=== PATIENT | male | born 1960 | race Caucasian/White ===

== ENCOUNTER 2023-02-05 16:13 | Outpatient (AMB) | payer OTHER, SELFPAY ==
[2023-02-05 16:23] VITALS: BP 138/80; PULSE 56; BMI 31.1
--- NOTE | 2023-02-05 16:23 | HO.NEPHOV_ITS ---
HPI HPI Comments History of Present Illness Details I had the privilege of seeing Eliseo in follow-up of his hypertension. He recently has seen another physician who wanted to make changes in his medication regimen. He was suggested at that time to starting chlorthalidone. Patient did not understand why there is a change when his blood pressure control has been stable on his current home medication regimen for long time. 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 He had multiple other physician visits with stable blood pressure. He monitors his blood pressure at home. His renal functions have been normal. He does not have any orthostatic symptoms. His serum potassium has been normal along with serum creatinine. He does not have any edema, retinopathy, chest pain, shortness of breath, proximal nocturnal dyspnea or orthopnea. He does not take nonsteroidal anti-inflammatory medications on a regular basis. He is conscious about low-sodium diet. He feels well. [facility] Medical History (Updated 02/06/23 @ 09:15 by Maximiliano Moser MD) Hypertension Surgical History (Updated 02/05/23 @ 16:36 by Nithya Tidwell MA) History of cholecystectomy H/O congenital atrial septal defect (ASD) repair Family History (Updated 02/05/23 @ 16:35 by Nithya Tidwell MA) Mother Hypertension Father Hypertension Social History (Updated 02/05/23 @ 16:34 by Nithya Tidwell MA) Alcohol intake: never Patient Tobacco Use Status: Never used Tobacco Vital Signs 02/05/23 16:23 02/05/23 17:10 Height 6 ft Weight 229 lb BMI 31.1 BP 138/80 130/80 Blood Pressure Location Rt brachial Position Sitting Pulse 56 Pulse Source Pulse Oximeter Physical Exam Vital Signs: Last Vital Signs Pulse 56 02/05/23 16:23 BP 130/80 02/05/23 17:10 BMI result Body Mass Index 31.1 Const General: comfortable and no acute distress Orientation/consciousness: patient oriented x3 HEENT Head: Yes normocephalic Mouth: Normal oral and palatal mucosa present Eyes EOM: EOMs intact bilaterally Neck Neck: Yes supple Resp Auscultation: clear to auscultation bilaterally Cardio Jugular venous distension: no JVD Rate: regular rate GI Palpation (GI): Soft to palpation Auscultation: normal bowel sounds General: Yes no CVA tenderness Back/Spine/Pelvis Back: no CVA tenderness Skin General skin exam: no rashes or lesions noted Neuro General: patient oriented x3 and moves all extremities Extrem General: Yes no pedal edema Assessment & Plan Assessment & Plan (1) Hypertension: Code(s): I10 - Essential (primary) hypertension Qualifiers: Hypertension type: primary hypertension Qualified Code(s): I10 - Essential (primary) hypertension Plan Eliseo has longstanding hypertension. His blood pressure is currently at goal. I rechecked his blood pressure in the office and it was 130/80 mm Hg. He has no proteinuria, heart failure, orthostatic symptoms or retinopathy. His renal functions are normal. His potassium is normal as well. He needs to lose some weight. He was frustrated with the recent suggestion of of a medication change for blood pressure management by someone in my old office(who apparently according to patient could not explain to him why that changes were made). I asked him to continue his current medication regimen, lose weight and maintain a low-sodium diet and monitor his blood pressure closely at home.. I did not make any medication changes today. I ordered urine for protein, his electrolytes and renal functions. All his questions and concerns were addressed. Time spent retrieving data, patient encounter and documentation 33 minutes. Follow-up given. Orders: Orders Electrolytes 02/05/23 I10 - Essential (primary) hypertension Protein Creatinine Ratio, Ur 02/05/23 I10 - Essential (primary) hypertension Blood Urea Nitrogen 02/05/23 I10 - Essential (primary) hypertension Creatinine 02/05/23 I10 - Essential (primary) hypertension Coding Level of Care Code Est Pt Level 4 (74596) Diagnoses Primary hypertension I10 Hypertension type: primary hypertension Results Reviewed Nephrology Results: No Data to Display
[2023-02-05 17:10] VITALS: BP 130/80
== END 2023-02-06 08:16 | disposition home or self-care (01) ==
PROVIDERS: PCP Family Medicine; Visit Provider Internal Medicine Nephrology
DX: I10 Essential (primary) hypertension (principal)
CPT/HCPCS: 99214

== ENCOUNTER → 2023-02-05 16:13 | Outpatient (BNVA) | payer OTHER, SELFPAY | PROVIDERS: PCP Family Medicine; Visit Provider Internal Medicine Nephrology ==

== ENCOUNTER → 2023-03-21 08:43 | Outpatient (BNVA) | payer SELFPAY | PROVIDERS: PCP Family Medicine; Visit Provider Physician Assistant | DX: Z02.79 Encounter for issue of other medical certificate (principal) ==

== ENCOUNTER 2023-05-08 15:11 | Outpatient (AMB) | payer OTHER, SELFPAY ==
--- NOTE | 2023-05-08 15:21 | HO.NEPHOV ---
HPI HPI Comments History of Present Illness Details I had the privilege of seeing Eliseo in follow-up of his hypertension. 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 He had multiple other physician visits with stable blood pressure. He monitors his blood pressure at home. His renal functions have been normal. He does not have any orthostatic symptoms. His serum potassium has been normal along with serum creatinine. He does not have any edema, retinopathy, chest pain, shortness of breath, proximal nocturnal dyspnea or orthopnea. He does not take nonsteroidal anti-inflammatory medications on a regular basis. He is conscious about low-sodium diet. He feels well. [facility] Medical History (Updated 02/06/23 @ 09:15 by Maximiliano Moser MD) Hypertension Surgical History History of cholecystectomy H/O congenital atrial septal defect (ASD) repair Family History Mother Hypertension Father Hypertension Social History Alcohol intake: never Patient Tobacco Use Status: Never used Tobacco Vital Signs 05/08/23 15:22 Height 6 ft Weight 229 lb 8 oz BMI 31.1 BP 120/80 Blood Pressure Location Lt brachial Position Sitting Pulse 63 Pulse Source Pulse Oximeter Pulse Oximetry (%) 94 Oxygen Delivery Method Room Air Physical Exam Vital Signs: Last Vital Signs Pulse 63 05/08/23 15:22 BP 140/80 H 05/08/23 15:22 Pulse Ox 94 05/08/23 15:22 Oxygen Delivery Method Room Air 05/08/23 15:22 BMI result Body Mass Index 31.1 Const General: comfortable and no acute distress Orientation/consciousness: patient oriented x3 HEENT Head: Yes normocephalic Mouth: Normal oral and palatal mucosa present Eyes EOM: EOMs intact bilaterally Neck Neck: Yes supple Resp Auscultation: clear to auscultation bilaterally Cardio Jugular venous distension: no JVD Rate: regular rate GI Palpation (GI): Soft to palpation Auscultation: normal bowel sounds General: Yes no CVA tenderness Back/Spine/Pelvis Back: no CVA tenderness Skin General skin exam: no rashes or lesions noted Neuro General: patient oriented x3 and moves all extremities Extrem General: Yes no pedal edema Assessment & Plan Assessment & Plan (1) Hypertension: Code(s): I10 - Essential (primary) hypertension Qualifiers: Hypertension type: primary hypertension Qualified Code(s): I10 - Essential (primary) hypertension Plan Eliseo has longstanding hypertension. His blood pressure is currently at goal. I rechecked his blood pressure in the office and it was 128/80 mm Hg. He has no proteinuria, heart failure, orthostatic symptoms or retinopathy. His renal functions are normal. His potassium is normal as well. He needs to lose some weight. I asked him to continue his current medication regimen, lose weight and maintain a low-sodium diet and monitor his blood pressure closely at home.. I did not make any medication changes today. I ordered urine for protein, his electrolytes and renal functions. All his questions and concerns were addressed. Orders: Orders Blood Urea Nitrogen Today I10 - Essential (primary) hypertension Electrolytes Today I10 - Essential (primary) hypertension Creatinine Today I10 - Essential (primary) hypertension Protein Creatinine Ratio, Ur Today I10 - Essential (primary) hypertension Coding Level of Care Code Est Pt Level 3 (99414) Diagnoses Primary hypertension I10 Hypertension type: primary hypertension Results Reviewed Nephrology Results: No Data to Display
[2023-05-08 15:22] VITALS: BP 120/80; PULSE 63; O2SAT 94; BMI 31.1
== END 2023-05-08 15:55 | disposition home or self-care (01) ==
PROVIDERS: PCP Family Medicine; Visit Provider Internal Medicine Nephrology
DX: I10 Essential (primary) hypertension (principal)
CPT/HCPCS: 99213

== ENCOUNTER → 2023-05-08 15:11 | Outpatient (BNVA) | payer OTHER, SELFPAY | PROVIDERS: PCP Family Medicine; Visit Provider Internal Medicine Nephrology ==

== ENCOUNTER 2023-11-01 16:12 | Outpatient (AMB) | payer OTHER, SELFPAY ==
--- NOTE | 2023-11-01 16:23 | HO.NEPHOV_ITS ---
Vital Signs 11/01/23 16:24 Height 6 ft Weight 228 lb 8 oz BMI 31.0 BP 128/80 Blood Pressure Location Rt brachial Position Sitting Intake Visit Reasons: 6 mon follow up/CONF Interface Control Officer Required: No Accompanied by: Self / Same As Patient Allergies cephalexin [Keflex] Allergy (Unknown, Verified 11/01/23 16:30) Unknown lisinopril Allergy (Unknown, Verified 11/01/23 16:30) Unknown penicillin V Allergy (Unknown, Verified 11/01/23 16:30) Unknown HPI Comments Details: I had the privilege of seeing Eliseo in follow-up of his hypertension. 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 He had multiple other physician visits with stable blood pressure. He monitors his blood pressure at home. His renal functions have been normal. He does not have any orthostatic symptoms. His serum potassium has been normal along with serum creatinine. He does not have any edema, retinopathy, chest pain, shortness of breath, proximal nocturnal dyspnea or orthopnea. He does not take nonsteroidal anti-inflammatory medications on a regular basis. He is conscious about low-sodium diet. He feels well. [facility] Medical History (Updated 02/06/23 @ 09:15 by Maximiliano Moser MD) Hypertension Surgical History History of cholecystectomy H/O congenital atrial septal defect (ASD) repair Family History Mother Hypertension Father Hypertension Social History Alcohol intake: never Patient Tobacco Use Status: Never used Tobacco Review of Systems Const All systems reviewed & are unremarkable except as noted in HPI and below Physical Exam Vital Signs: Last Vital Signs BP 128/80 11/01/23 16:24 BMI result Body Mass Index 31.0 Const General: comfortable and no acute distress Orientation/consciousness: patient oriented x3 HEENT Head: Yes normocephalic Mouth: Normal oral and palatal mucosa present Eyes EOM: EOMs intact bilaterally Neck Neck: Yes supple Resp Auscultation: clear to auscultation bilaterally Cardio Jugular venous distension: no JVD Rate: regular rate GI Palpation (GI): Soft to palpation Auscultation: normal bowel sounds General: Yes no CVA tenderness Back/Spine/Pelvis Back: no CVA tenderness Skin General skin exam: no rashes or lesions noted Neuro General: patient oriented x3 and moves all extremities Extrem General: Yes no pedal edema Results Reviewed Nephrology Results: No Data to Display Assessment & Plan Assessment & Plan (1) Hypertension: Code(s): I10 - Essential (primary) hypertension Category: Medical Qualifiers: Hypertension type: primary hypertension Qualified Code(s): I10 - Essential (primary) hypertension Plan Eliseo has longstanding hypertension. His blood pressure is currently at goal. He has no proteinuria, heart failure, orthostatic symptoms or retinopathy. His renal functions are normal. His potassium is normal as well. He needs to lose some weight. I asked him to continue his current medication regimen, lose weight and maintain a low-sodium diet and monitor his blood pressure closely at home.. I did not make any medication changes today. All his questions and concerns were addressed. Orders: Orders Protein Creatinine Ratio, Ur 6 Months I10 - Essential (primary) hypertension Creatinine 6 Months I10 - Essential (primary) hypertension Blood Urea Nitrogen 6 Months I10 - Essential (primary) hypertension Electrolytes 6 Months I10 - Essential (primary) hypertension Coding Level of Care Code Est Pt Level 4 (84942) Diagnoses Primary hypertension I10 Hypertension type: primary hypertension
[2023-11-01 16:24] VITALS: BP 128/80; BMI 31.0
== END 2023-11-01 16:53 | disposition home or self-care (01) ==
PROVIDERS: PCP Family Medicine; Visit Provider Internal Medicine Nephrology
DX: I10 Essential (primary) hypertension (principal)
CPT/HCPCS: 99214

== ENCOUNTER → 2023-11-01 16:12 | Outpatient (BNVA) | payer OTHER, SELFPAY | PROVIDERS: PCP Family Medicine; Visit Provider Internal Medicine Nephrology ==

== ENCOUNTER 2024-10-23 15:19 | Outpatient (AMB) | payer OTHER, SELFPAY ==
--- NOTE | 2024-10-23 15:39 | HO.NEPHOV_ITS ---
Vital Signs 10/23/24 15:44 Height 6 ft Weight 236 lb 8 oz BMI 32.1 BP 140/90 H Blood Pressure Location Lt brachial Position Sitting Pulse 55 Pulse Source Pulse Oximeter Pulse Oximetry (%) 95 Oxygen Delivery Method Room Air Intake Visit Reasons: F/U-[employer]VM [employer] Testing Required: No Accompanied by: Self / Same As Patient Allergies cephalexin (Keflex) Allergy (Unknown, Verified 10/23/24 15:44) Unknown lisinopril Allergy (Unknown, Verified 10/23/24 15:44) Unknown penicillin V Allergy (Unknown, Verified 10/23/24 15:44) Unknown HPI Comments Details: Eliseo was seen in follow-up of his hypertension. He monitors his blood pressure at home. His renal functions have been normal. He does not have any orthostatic symptoms. His serum potassium has been normal along with serum creatinine. He does not have any edema, retinopathy, chest pain, shortness of breath, proximal nocturnal dyspnea or orthopnea. He does not take nonsteroidal anti-inflammatory medications on a regular basis. He is conscious about low-sodium diet. He has not lost any weight. He feels well. [facility] Medical History (Updated 02/06/23 @ 09:15 by Maximiliano Moser MD) Hypertension Surgical History History of cholecystectomy H/O congenital atrial septal defect (ASD) repair Family History Mother Hypertension Father Hypertension Social History Alcohol intake: never Patient Tobacco Use Status: Never used Tobacco Review of Systems Const All systems reviewed & are unremarkable except as noted in HPI and below Physical Exam Vital Signs: Last Vital Signs Pulse 55 10/23/24 15:44 BP 140/90 H 10/23/24 15:44 Pulse Ox 95 10/23/24 15:44 Oxygen Delivery Method Room Air 10/23/24 15:44 BMI result Body Mass Index 32.1 Const General: comfortable and no acute distress Orientation/consciousness: patient oriented x3 HEENT Head: Yes normocephalic Mouth: Normal oral and palatal mucosa present Eyes EOM: EOMs intact bilaterally Neck Neck: Yes supple Resp Auscultation: clear to auscultation bilaterally Cardio Jugular venous distension: no JVD Rate: regular rate GI Palpation (GI): Soft to palpation Auscultation: normal bowel sounds General: Yes no CVA tenderness Back/Spine/Pelvis Back: no CVA tenderness Skin General skin exam: no rashes or lesions noted Neuro General: patient oriented x3 and moves all extremities Extrem General: Yes no pedal edema Assessment & Plan Assessment & Plan (1) Hypertension: Code(s): I10 - Essential (primary) hypertension Category: Medical Qualifiers: Hypertension type: primary hypertension Qualified Code(s): I10 - Essential (primary) hypertension Plan Eliseo has longstanding hypertension. He has no proteinuria, heart failure, orthostatic symptoms or retinopathy. His renal functions are normal. His potassium is normal as well. He needs to lose some weight. I asked him to continue his current medication regimen, lose weight and maintain a low-sodium diet and monitor his blood pressure closely at home. He will need 24 hour BPM and more BP medications if BP goes up. I did not make any medication changes today. All his questions and concerns were addressed. Orders: Orders Protein Creatinine Ratio, Ur 6 Months I10 - Essential (primary) hypertension Blood Urea Nitrogen 6 Months I10 - Essential (primary) hypertension Electrolytes 6 Months I10 - Essential (primary) hypertension Creatinine 6 Months I10 - Essential (primary) hypertension Coding Level of Care Code Est Pt Level 4 (43367) Diagnoses Primary hypertension I10 Hypertension type: primary hypertension
[2024-10-23 15:44] VITALS: BP 140/90; PULSE 55; O2SAT 95; BMI 32.1
--- OUTSIDE RECORDS SUMMARY | 2024-10-23 15:52 | XMS_ITS | Clinical Summary ---
Author Organization [facility] Address [address] [facility] [address] [facility] [address] [place] [address] Phone Care Team Providers Care Commercial Field Inspector Name Role Phone Le, Calixto Deidra BARR Primary Care Provider [phone] Allergies Active Allergy Reactions Criticality Noted Date Comments Cephalexin Other (see comments) 10/05/2020 Lisinopril Other (see comments) 10/05/2020 Penicillins 10/05/2020 Medications allopurinol (ZYLOPRIM) 100 MG tablet Take 1 tablet by mouth 1 (one) time each day Active carvedilol (COREG) 25 MG tablet Take 1 tablet by mouth 2 (two) times a day 02/03/2015 Active valsartan (DIOVAN) 160 MG tablet Take 1.5 tablets (240 mg total) by mouth 1 (one) time each day 135 tablet 3 03/21/2022 Active chlorthalidone 25 MG tablet Take 0.5 tablets (12.5 mg total) by mouth 1 (one) time each day 45 tablet 3 11/28/2022 Active isosorbide mononitrate (IMDUR) 30 MG 24 hr tabletIndication s:Hypertension Take 1 tablet (30 mg total) by mouth 1 (one) time each day Do not crush or chew. 90 tablet 01/19/2023 Active hydrALAZINE 100 MG tablet TAKE ONE TABLET BY MOUTH THREE TIMES DAILY 90 tablet 09/27/2023 Active Active Problems Problem Noted Date Diagnosed Date Gout 01/23/2021 Acute nontraumatic kidney injury 10/05/2020 Hypertension 10/05/2020 Resolved Problems Problem Noted Date Diagnosed Date Resolved Date Atrial septal defect 01/23/2021 022 Hyperlipidemia 10/05/2020 06/06/2021 Immunizations Immunization Administration Dates Next Due Moderna SARS-COV-2 06/11/2020,05/13/2020 Family History Medical History Relation Comments Hypertension Father Hypertension Mother Relation Status Comments Father Mother Social History Tobacco Use Types Packs/Day Years Used Date Smoking Tobacco: Never Smokeless Tobacco: Never Tobacco Cessation:Counseling Given: Not Answered Alcohol Use Standard Drinks/Week Comments Yes 0 (1 standard drink = 0.6 oz pure alcohol) Alcoholic Drinks/day: Occasional social drink Sex and Gender Information Value Date Recorded Sex Assigned at Not on file Legal Sex Male 4:41 PM EST Gender Identity Not on file Sexual Orientation Not on file Last Filed Vital Signs Vital Sign Reading Time Taken Comments Blood Pressure 141/82 11/28/2022 4:18 PM EDT Pulse 60 11/28/2022 4:18 PM EDT Temperature - - Respiratory Rate - - Oxygen Saturation 96% 11/28/2022 4:18 PM EDT Inhaled Oxygen Concentration - - Weight 108 kg (237 lb 3.2 oz) 11/28/2022 4:18 PM EDT Height 182.9 cm (6') 09/19/2019 12:00 PM EDT Body Mass Index 32.17 09/19/2019 12:00 PM EDT Plan of Treatment Health Maintenance Due Date Last Done Comments Pneumococcal Vaccine: 50+ Ye ars (1 of 2 - PCV) 09/29/1979 Colorectal Cancer Screening: Annual FOBT 2009 Colorectal Cancer Screening: Colonoscopy 2009 Colorectal Cancer Screening: Sigmoidoscopy 2009 Influenza Vaccine (#1) 2024 Hepatitis B Vaccine Aged Out No longe r eligible based on patient's age to complete this topic Care Teams Commercial Field Inspector Relationship Specialty Start Date End Date Calixto Le DO [address] [place] [address] PCP - General 03/08/20
--- OUTSIDE RECORDS SUMMARY | 2024-10-23 15:52 | XMS_ITS | Encounter Summary ---
Author Organization [facility] Address [address] [facility] [address] [facility] [address] [place] [address] Phone Care Team Providers Care Medicine Assistant Name Role Phone Calixto Le DO Primary Care Provider [phone] Reason for Visit * Reason Comments Med Refill Encounter Details Date Type Department Care Team ([facility] st Contact Info) Description 07/03/2023 Refill [facility] [address] [facility] [address] [place] [phone] Braeden Gayle MD [address] [facility] [address] [place] [phone] Hypertension Social History Tobacco Use Types Packs/Day Years Used Date Smoking Tobacco: Never Smokeless Tobacco: Never Alcohol Use Standard Drinks/Week Comments Yes 0 (1 standard drink = 0.6 oz pure alcohol) Alcoholic Drinks/day: Occasional social drink Sex and Gender Information Value Date Recorded Sex Assigned at Not on file Legal Sex Male 4:41 PM EST Gender Identity Not on file Sexual Orientation Not on file documented as of this encounter Plan of Treatment Not on file documented as of this encounter Visit Diagnoses Diagnosis Hypertension documented in this encounter Care Teams Medicine Assistant Relationship Specialty Start Date End Date Calixto Le DO [address] [place] [address] PCP - General 03/08/20 documented as of this encounter
--- OUTSIDE RECORDS SUMMARY | 2024-10-23 15:52 | XMS_ITS | Encounter Summary ---
Author Organization [facility] Address [address] [place] [address] Phone Care Team Providers Care Supply Chain Systems Manager Name Role Phone Calixto Le DO Primary Care Provider [phone] Encounter Details Date Type Department Care Team (Late st Contact Info) Description 06/07/2021 Documentation Only [facility] [address] [place] [phone] Maximiliano Moser MD Social History Tobacco Use Types Packs/Day Years [...] on file Sexual Orientation Not on file COVID-19 Exposure Response Date Recorded In the last month, have you been in contact with someone who was confirmed or suspected to have Coronavirus / COVID-19? No / Unsure 06/06/2021 9:06 AM EDT documented as of this encounter Plan of Treatment Not on file documented as of this encounter Visit Diagnoses Not on filedocumented in this encounter Care Teams Supply Chain Systems Manager Relationship Specialty Start Date End Date Calixto Le DO [address] [place] [id number] PCP - General 03/08/20 documented as of this encounter
== END 2024-10-23 16:13 | disposition home or self-care (01) ==
LOC: HO.HKAS 15:20
PROVIDERS: PCP Family Medicine; Visit Provider Internal Medicine Nephrology
DX: I10 Essential (primary) hypertension (principal)
CPT/HCPCS: 99214